=== PATIENT | female | born 1990 | race Caucasian/White ===

== ENCOUNTER → 2016-03-10 | Outpatient (CLI) | payer OTHER ==
[~2016-03-10] MED LIST: AMPH20TA2 PO; EFF/375 PO; EFF75 PO; TRAZ100T29 PO; TRAZ50TA35 PO; VITAMIN B12 SL; [UNRECOGNIZED DRUG - OTHER] PO; [UNRECOGNIZED DRUG - OTHER] PO
== END | disposition home or self-care (01) ==
LOC: C.PAPS 13:29
PROVIDERS: ATTEND Obstetrics & Gynecology
DX: Z12.4 Encounter for screening for malignant neoplasm of cervix (principal); R87.613 High grade squamous intraepithelial lesion on cytologic smear of cervix (HGSIL)

== ENCOUNTER → 2016-03-10 | Outpatient (CLI) | payer OTHER ==
[2016-03-15 03:24] LABS: CHLAMYDIA TRACH RNA*** NOT DETECTED (NOT DETECTED); GC (NEIS GONORRHOEAE)RNA** NOT DETECTED (NOT DETECTED)
== END | disposition home or self-care (01) ==
LOC: C.LABSPEC 14:19
PROVIDERS: ATTEND Obstetrics & Gynecology
DX: Z11.3 Encounter for screening for infections with a predominantly sexual mode of transmission (principal)

== ENCOUNTER → 2016-04-05 | Outpatient (CLI) | payer OTHER | END | disposition home or self-care (01) | LOC: C.PATHSPEC 13:34 | PROVIDERS: ATTEND Obstetrics & Gynecology | DX: R87.613 High grade squamous intraepithelial lesion on cytologic smear of cervix (HGSIL) (principal); R87.612 Low grade squamous intraepithelial lesion on cytologic smear of cervix (LGSIL) ==

== ENCOUNTER → 2016-07-12 | Day surgery (SDC) | payer OTHER ==
[2016-04-21 14:41] VITALS: BMI 25.0
[2016-06-26 12:39] VITALS: Ht 170.2 cm; Wt 79.5 kg
--- NOTE | 2016-07-07 08:24 | HISTORY & PHYSICAL EXAMINATION ---
DATE OF ADMISSION: 07/12/2016 CHIEF COMPLAINT: Cervical dysplasia. HISTORY OF PRESENT ILLNESS: The patient is a 26-year-old white female , s/p vaginal delivery. She presently is using an IUD for contraception. The patient underwent colposcopy on 04/05/2016 and this showed MIKEY 2. Her ECC at that time was negative. The colposcopy was carried out due to a Pap smear which showed high grade GURPREET. The patient is now for treatment by LEEP procedure. PAST MEDICAL HISTORY: ALLERGIES: No known drug allergies. MEDICATIONS: The patient takes Effexor 75 mg daily and trazodone 100 mg daily. ILLNESSES: The patient reportedly suffers with anxiety. She also has a history of pelvic pain. SURGERIES: She is status post D&C. She has also had a diagnostic laparoscopy performed, this was in November of 2011 and this was negative. FAMILY HISTORY: Her paternal grandfather had hypertension. There is a family history of breast cancer. Also of elevated cholesterol. SOCIAL HISTORY: The patient is single. She smokes approximately 1 pack of cigarettes per day. She drinks 1 drink per week. PHYSICAL EXAMINATION: VITAL SIGNS: Height 5 feet 7 inches, weight 176 pounds, and blood pressure 114/82. HEENT: Grossly within normal limits. NECK: Supple without masses. CHEST: Her lungs are clear without wheezing. HEART: Regular rate and rhythm. No murmurs, gallops or rubs. ABDOMEN: Soft and nontender with no masses. PELVIC: External genitalia normal. Vagina is pink and stimulated. Cervix is pink and closed with no visible lesions. Uterus is within normal limit size and nontender. Adnexa nontender with no masses palpable. EXTREMITIES: No cyanosis, clubbing or edema. IMPRESSION: A 26-year-old white female 1, para 1, who has high-grade cervical dysplasia. PLAN: The patient is for loop electrosurgical excision procedure. She is also for removal of her IUD. The patient is aware of the risks of bleeding, infection, damage to surrounding structures, transfusion, risk of anesthesia as well as the risk of recurrence of dysplasia. The patient wishes to proceed with the surgery. MTDD
[~2016-07-12] VITALS: Ht 170.2 cm; Wt 79.5 kg
[~2016-07-12] MED LIST changes: -AMPH20TA2 PO; +ATROPINE SULFATE 0.1 MG/ML 5ML SYR IV PRN; +DEXAMETHASONE SOD INJ 4 MG/ML VIAL ONE; -EFF/375 PO; -EFF75 PO; +EpHEDrine SULFATE INJ 50 MG/ML AMP IV PRN; +FENTANYL CITRATE INJ 50 MCG/1 ML 2 ML VIAL ONE; +FERRIC SUBSULFATE 8 GM VIAL ONE; +FLUMAZENIL 0.1 MG/1 ML 10 ML VIAL IV PRN; +HYDROmorphone INJ 2 MG/ML SYR/VIAL IV PRN; +IBUPROFEN 200 MG TAB ONE; +IBUPROFEN 600 MG TAB PO PRN; +IODINE SOLN STRONG 14 ML ONE; +KETOROLAC TROMETHAMINE 30 MG/ML VIAL ONE; +LABETALOL HCL IV 5 MG/ML 20ML IV PRN; +LACTATED RINGER'S 1000ML 1,000 ML IV SCH; +LIDOCAINE HCL 2% 2 ML VIAL (20MG/ML) ONE; +LIDOCAINE/EPINEPHRINE 1% INJ 50 ML VIAL ONE; +MEPERIDINE HCL 25 MG/ML CARP IV PRN; +MIDAZOLAM HCL 1 MG/ML 2ML VIAL ONE; +NALOXONE HCL 0.4 MG/1 ML VIAL/CARP IV PRN; +ONDANSETRON INJ 2 MG/ML 2 ML VIAL IV PRN; +ONDANSETRON INJ 2 MG/ML 2 ML VIAL ONE; +PHENYLEPHRINE 100MCG/ML 5ML SYR IV PRN; +PROPOFOL IV EMULSION 10 MG/ML 20 ML VIAL IV ONE; +SODIUM CHLORIDE 0.9% 1000ML 1,000 ML IV SCH; -TRAZ50TA35 PO; -[UNRECOGNIZED DRUG - OTHER] PO; -[UNRECOGNIZED DRUG - OTHER] PO
--- NOTE | 2016-07-12 11:53 | History & Physical Bridge - SC ---
H&P Re-Evaluation Bridge Note: I have examined the patient, reviewed the History & Physical and in the interval since the performance of the History & Physical I have noted the following changes of clinical significance: No changes noted
--- NOTE | 2016-07-12 12:21 | [facility] Post Operative Brief Note ---
Immediate Operative Summary Operative Date July 12, 2016. Pre-Operative Diagnosis High Grade Squamous Intraepithelial Lesion Post-Operative Diagnosis Same, with pathology pending Procedure(s) Performed Loop Electrosurgical Excision Procedure, Removal Intra Uterine Device Surgeon Dr. Bazzi E D Tech Surgeon(s) None Estimated Blood Loss 25 ml Findings See dictated note. Specimens A. Central Leep B. Posterior Lip of Cervix C. Endocervix Complication(s) None Disposition Recovery Room / PACU
--- NOTE | 2016-07-12 12:31 | Discharge Instructions-SurgCtr ---
Discharge Instructions Date of Service July 12, 2016. Visit Reason for Visit: High Grade Squamous Intraepithelial Lesion Discharge Discharge Diagnosis / Problem: S/P LEEP of cervix Discharge Goals Goal(s): Diagnostic testing, Therapeutic intervention Activity Recommendations Activity Limitations: per Instructions/Follow-up section Anesthesia . Post Anesthesia Instructions: If you have had General Anesthesia or IV Sedation: * Do not drive today. * Resume driving when surgeon permits. * Do not make important decisions or sign legal documents today. * Call surgeon for: 1. Temperature elevations greater than 101 degrees F. 2. Uncontrollable pain. 3. Excessive bleeding. 4. Persistent nausea and vomiting. 5. Medication intolerance (nausea, vomiting or rash). * For nausea and vomiting use only clear liquids such as: tea, soda, bouillon until nausea subsides, then gradually increase diet as tolerated. * If you have any concerns or questions, call your surgeon's office. If physician is unavailable and it is an emergency, call 911 or go to the nearest emergency room. . Instructions / Follow-Up Instructions / Follow-Up ACTIVITY RECOMMENDATIONS: Normal activity the day after procedure with the following exceptions/ limitations: 1. No strenuous activity for 2-3 days. 2. Nothing in vagina for four weeks and/or cleared by your physician. 3. No heavy lifting greater than 10 pounds for three days. 4. No tampons, douches or intercourse until cleared by physician. 5. You may drive when you feel capable after 24 hours. 6. You may bath or shower. 7. You may climb stairs without restrictions. 8. Call if you have persistent severe cramping, heavy bleeding or develop a foul vaginal discharge. Call [phone] if you have a problem or to schedule follow up appointment with Dr Bazzi in 3-4 weeks. Diet Recommendations Home Diet: resume previous diet Procedures Procedures Performed: Loop Electrosurgical Excision Procedure, Removal Intra Uterine Device Pending Studies Studies pending at discharge: yes List of pending studies: We will call you with your pathology report from the LEEP specimen in about one week. Medical Emergencies . Who to Call and When: Medical Emergencies: If at any time you feel your situation is an emergency, please call 911 immediately. . Non-Emergent Contact Non-Emergency issues call your: Mine Surveyor Call Non-Emergent contact if: temperature is above 100.5, your pain is worsening . . "Provider Documentation" section prepared by Nicole Bazzi. .
[2016-07-12] MEDS: FENTANYL CITRATE INJ 50 MCG/1 ML 2 ML VIAL IV PRN ×2 (12:50→12:57)
--- NOTE | 2016-07-12 13:00 | Anesthesia Progress Nt - [facility] ---
Anesthesia Post Op Note Date & Time July 12, 2016 at 13:00 Vital Signs Pain Intensity: 2 Vital Signs Past 12 Hours Date Time Temp Pulse Resp B/P Pulse Ox O2 Delivery O2 Flow Rate FiO2 07/12/16 12:40 71 19 99 07/12/16 12:40 70 19 07/12/16 12:36 109/57 07/12/16 12:35 74 20 99 07/12/16 12:35 73 20 07/12/16 12:31 113/61 07/12/16 12:30 76 18 99 07/12/16 12:30 77 18 07/12/16 12:26 118/61 07/12/16 12:25 82 99 07/12/16 12:25 82 07/12/16 12:25 36.6 84 12 118/61 99 Diffusion Mask 6 07/12/16 11:10 37.1 69 16 123/73 98 Room Air Notes Mental Status: alert / awake / arousable, participated in evaluation Pt Amnestic to Procedure: Yes Nausea / Vomiting: adequately controlled Pain: adequately controlled Airway Patency, RR, SpO2: stable & adequate BP & HR: stable & adequate Hydration State: stable & adequate Anesthetic Complications: no major complications apparent
[2016-07-12 13:20] VITALS: TEMP 36.3
[2016-07-12 13:47] VITALS: BP 115/72; PULSE 61; O2SAT 99
--- NOTE | 2016-07-12 14:32 | OPERATIVE REPORT ---
DATE OF OPERATION: 07/12/2016 PREOPERATIVE DIAGNOSIS: High grade squamous intraepithelial lesion of the cervix. POSTOPERATIVE DIAGNOSIS: Same with pathology pending. PROCEDURE: LEEP of the cervix and removal of IUD. SURGEON: Dr. Nicole Bazzi. ANESTHESIA: General. CERTIFIED HYPERBARIC TECHNOLOGIST: Dr. Kahn. PROCEDURE: The patient was taken to the operating room where general anesthesia was administered. After an adequate level was obtained, she was placed in dorsal lithotomy position. Vulva, vagina, and cervix were prepped with Betadine solution. The patient was draped. Bladder was drained with a straight catheter. Weighted speculum was placed in the posterior fornix of the vagina. The anterior lip was grasped with an Allis clamp. IUD strings were visible at the cervical os. Zoie clamp was used to grasp the strings and remove the IUD. This was a Mirena IUD which was removed intact. The cervix was painted with Lugol's solution. There were no nonstaining areas visible. 1% lidocaine with epinephrine was then injected into the cervix. A central specimen of cervix was removed using a large wire loop. This did not remove the bulk of the posterior surface of the cervix so a second pass was made for the posterior lip. Endocervix specimen was then obtained using a smaller wire loop. Hemostasis was then obtained using ball tip cautery. Monsel's paste was applied as well. Hemostasis was obtained. The patient tolerated the procedure well. Estimated blood loss 25 mL. The patient was taken to the recovery room in good condition. I attest to the content of the Intraoperative Record and any orders documented therein. Any exceptions are noted below. MTDD
== END | disposition home or self-care (01) ==
LOC: X.SURG 10:56
PROVIDERS: ATTEND Obstetrics & Gynecology
DX: N87.0 Mild cervical dysplasia (principal); F41.9 Anxiety disorder, unspecified; F17.210 Nicotine dependence, cigarettes, uncomplicated; Z79.899 Other long term (current) drug therapy; Z30.432 Encounter for removal of intrauterine contraceptive device

== ENCOUNTER → 2017-03-02 | Outpatient (CLI) | payer OTHER ==
[~2017-03-02] MED LIST changes: -ATROPINE SULFATE 0.1 MG/ML 5ML SYR IV PRN; -DEXAMETHASONE SOD INJ 4 MG/ML VIAL ONE; -EpHEDrine SULFATE INJ 50 MG/ML AMP IV PRN; -FENTANYL CITRATE INJ 50 MCG/1 ML 2 ML VIAL ONE; -FERRIC SUBSULFATE 8 GM VIAL ONE; -FLUMAZENIL 0.1 MG/1 ML 10 ML VIAL IV PRN; -HYDROmorphone INJ 2 MG/ML SYR/VIAL IV PRN; -IBUPROFEN 200 MG TAB ONE; -IBUPROFEN 600 MG TAB PO PRN; -IODINE SOLN STRONG 14 ML ONE; -KETOROLAC TROMETHAMINE 30 MG/ML VIAL ONE; -LABETALOL HCL IV 5 MG/ML 20ML IV PRN; -LACTATED RINGER'S 1000ML 1,000 ML IV SCH; -LIDOCAINE HCL 2% 2 ML VIAL (20MG/ML) ONE; -LIDOCAINE/EPINEPHRINE 1% INJ 50 ML VIAL ONE; -MEPERIDINE HCL 25 MG/ML CARP IV PRN; -MIDAZOLAM HCL 1 MG/ML 2ML VIAL ONE; -NALOXONE HCL 0.4 MG/1 ML VIAL/CARP IV PRN; -ONDANSETRON INJ 2 MG/ML 2 ML VIAL IV PRN; -ONDANSETRON INJ 2 MG/ML 2 ML VIAL ONE; -PHENYLEPHRINE 100MCG/ML 5ML SYR IV PRN; -PROPOFOL IV EMULSION 10 MG/ML 20 ML VIAL IV ONE; -SODIUM CHLORIDE 0.9% 1000ML 1,000 ML IV SCH
== END | disposition home or self-care (01) ==
LOC: C.LABSPEC 15:48
PROVIDERS: ATTEND Obstetrics & Gynecology
DX: N92.6 Irregular menstruation, unspecified (principal); Z11.3 Encounter for screening for infections with a predominantly sexual mode of transmission; Z11.8 Encounter for screening for other infectious and parasitic diseases

== ENCOUNTER → 2017-03-02 | Outpatient (CLI) | payer OTHER | END | disposition home or self-care (01) | LOC: C.PAPS 09:51 | PROVIDERS: ATTEND Obstetrics & Gynecology | DX: Z87.410 Personal history of cervical dysplasia (principal) ==